=== PATIENT | female | born 1975 | race Caucasian/White ===

== ENCOUNTER 2022-11-05 12:56 | Emergency (ER) | payer OTHER, SELFPAY ==
[2022-11-05] VITALS (7 sets, daily range): BP systolic 120–160; BP diastolic 67–100; PULSE 70–82; RESP 11–18; TEMP 36.5–37.1; O2SAT 93–100; BMI 43.5
--- NOTE | ~2022-11-05 | XR_ITS ---
EXAMINATION: XR CHEST CLINICAL INFORMATION: Chest pain. COMPARISON: None available. TECHNIQUE: 2 views of the chest were obtained. FINDINGS: No significant abnormality is noted involving the heart, lungs, mediastinum, bony thorax or soft tissues. XR/XR chest 2V IMPRESSION: No acute cardiopulmonary process.
--- NOTE | 2022-11-05 14:14 | ECG_ITS ---
Test Reason : sob Blood Pressure : / mmHG Vent. Rate : 081 BPM Atrial Rate : 081 BPM P-R Int : 210 ms QRS Dur : 074 ms QT Int : 386 ms P-R-T Axes : 049 -07 037 degrees QTc Int : 448 ms Sinus rhythm with 1st degree A-V block Possible Left atrial enlargement Borderline ECG No previous ECGs available Referred By: Arti Wilhelm Electronically Signed By:JAIME GROSSMAN
--- NOTE | 2022-11-05 14:35 | ED.GENADULT ---
HPI - General Adult General Chief complaint: General Medical Stated complaint: SOB, high BP (208/100) per EMS Time Seen by Provider: 11/05/22 13:51 Source: patient and EMS Mode of arrival: EMS Limitations: no limitations History of Present Illness HPI narrative: 47-year-old female with a history of asthma presents to the ER with complaints of waking with chest tightness, shortness of breath. Patient denies cough, fever, dizziness, palpitations, leg swelling or leg pain. No recent illnesses. No recent travel. Patient reports multiple stressors at home and increasing anxiety. No SI or HI. Use albuterol at home with continued symptom. Patient reports chest tightness is constant as well as shortness of breath. It is not exertional. It is not pleuritic. Related Data Allergies Allergy/AdvReac Type Severity Reaction Status Date / Time No Known Allergies Allergy Verified 11/05/22 19:10 Review of Systems Review of Systems: Yes all other systems are reviewed and are negative Constitutional: Constitutional: Reports no additional constitutional complaints, Denies body ache(s), Denies chills, Denies fever(s), Denies headache(s) and Denies weakness Eyes: Eyes: Reports no additional eye complaints and Denies change in vision ENT: Reports system reviewed and no additional complaints, except as documented, Denies dizziness, Denies headache(s), Denies nasal congestion, Denies nasal discharge and Denies neck pain Cardiovascular: Cardiovascular: Reports no additional cardiovascular complaints, Reports chest pain, Denies leg edema and Reports dyspnea Respiratory: Respiratory: Reports no additional respiratory complaints, Denies cough and Reports dyspnea Gastrointestinal: Gastrointestinal: Reports no additional gastrointestinal complaints, Denies abdominal pain, Denies diarrhea, Denies nausea and Denies vomiting Genitourinary: Genitourinary: Reports no additional female genitourinary complaints and Denies urinary incontinence Musculoskeletal: Musculoskeletal: Reports no additional musculoskeletal complaints, Denies back pain, Denies arthralgias, Denies joint swelling, Denies neck pain, Denies numbness and Denies tingling Integumentary/Breasts: Skin/Breast: Reports system reviewed and no additional complaints, except as docu and Denies rash Neurologic: Reports system reviewed and no additional complaints, except as documented, Denies dizziness, Denies headache(s), Denies numbness, Denies tingling and Denies weakness PMFSH Past Medical History Attestation statement: The following information was validated with the patient. Source: old records reviewed and nursing notes reviewed Social History Social History Advance Directives: No Advance Directives Information Provided: No Physical Exam ED Vital Signs: Vital Signs - 24 hr 11/05/22 13:24 11/05/22 19:20 11/05/22 19:25 Temperature 97.7 F Pulse Rate 82 74 82 Respiratory Rate 18 18 16 Blood Pressure 142/95 H 149/90 H 120/67 Pulse Oximetry 96 94 95 Oxygen Delivery Method Room Air Room Air Room Air 11/05/22 19:30 11/05/22 19:35 Temperature Pulse Rate 81 82 Respiratory Rate 11 L 15 Blood Pressure 133/81 132/84 Pulse Oximetry 96 93 Oxygen Delivery Method Room Air Room Air BMI result Body Mass Index 43.5 Const General: cooperative, healthy appearing, comfortable and no acute distress Orientation/consciousness: patient oriented x3 Limitations: no limitations HENMT Head: Yes normal to inspection Ears: hearing grossly normal bilaterally Eyes General: appearance normal, both eyes and all related structures Pupils: Equal, round and reactive pupils present Neck Neck: Yes normal visual inspection, Yes full ROM, Yes no lymphadenopathy and Yes no meningeal signs Chest Chest palpation & inspection: normal inspection of the chest Resp Effort & Inspection: normal respiratory effort Auscultation: clear to auscultation bilaterally Cardio Rate: regular rate Rhythm: regular rhythm Peripheral pulses: Peripheral pulses 2+ throughout GI Inspection: Yes normal to inspection Palpation (GI): Soft to palpation and nontender General: Yes no CVA tenderness Back/Spine/Pelvis Back: no CVA tenderness Thoracic/Lumbar Spine: thoracic and lumbar spine normal to inspection Skin General skin exam: no rashes or lesions noted Neuro General: patient oriented x3, moves all extremities and no meningeal signs Cranial nerves: Yes CN's II-XII intact bilaterally, Yes Equal, round and reactive pupils present, Yes Bilaterally intact EOM present, Yes Nystagmus not present and Yes Normal facial strength present Cognition (Neuro): normal cognition Gait exam (Neuro): Normal gait present Motor exam (neuro): 5/5 motor strength present throughout Sensory Exam: Normal double simultaneous stimulation for sensation Extrem General: Yes normal to inspection, Yes no pedal edema and Yes no calf tenderness Course Course Course Narrative: 1520-patient's troponin is 54. Her EKG looks nonischemic. Her history of present illness is atypical for ACS. I will plan to repeat a troponin in 3 hours. Reevaluation(s) Reevaluation #1: 1630-sign out to Miriam BAUER pending repeat troponin and re-evaluation Reevaluation #2: repeat troponin went from 54-88. Patient still having active chest pain. Therefore I discussed this case with Dr. Alonzo our bench worker helper he reported that the patient should be given IV heparin at this time and she should be transferred to [facility] for cardiac catheterization. Therefore I discussed this case with 1 of the cardiologists at [facility] they recommended giving the patient nitro to control her pain 3 times if her pain was not controlled and she would have to be started on a nitro drip. Therefore her pain is now at a 4 out of a 10 after 3 sublingual nitros. Therefore a nitro drip was started. She will be transported via EMS to a direct admit at [facility] to be evaluated by Cardiology Dr. [facility] provider at [facility]. Patient understands she will be transported. Will continue to monitor until then. Time: 20:07 Medications Administered Generic Name Dose Route Start Last Admin Trade Name Freq PRN Reason Stop Dose Admin Heparin Sodium/Sodium Chloride 25,000 unit in 250 mls @ 0 mls/hr 11/05/22 19:00 11/05/22 19:55 Heparin Sodium,Porcine/1/2ns IVCONT 10 units/kg/hr .Q0M LINDA 11.5 mls/hr Administration Protocol Per Protocol Discontinued Medications Generic Name Dose Route Start Last Admin Trade Name Freq PRN Reason Stop Dose Admin Heparin Sodium (Porcine) 4,000 unit 11/05/22 18:53 11/05/22 19:11 Heparin Sodium,Porcine 5,000 Unit/Ml Vial IVPUSH 11/05/22 18:54 4,000 unit ONCE ONE Administration Ketorolac Tromethamine 30 mg 11/05/22 14:14 11/05/22 14:36 Ketorolac Tromethamine 30 Mg/Ml Vial IVPUSH 11/05/22 14:15 30 mg ONCE ONE Administration Lorazepam 0.5 mg 11/05/22 14:14 11/05/22 14:36 Lorazepam 2 Mg/Ml Vial IVPUSH 11/05/22 14:15 0.5 mg STAT STA Administration Nitroglycerin 0.4 mg 11/05/22 19:07 11/05/22 19:20 Nitroglycerin 0.4 Mg Tab.Subl SUBLINGUAL 11/05/22 19:08 0.4 mg ONCE ONE Administration Nitroglycerin 0.4 mg 11/05/22 19:34 11/05/22 19:25 Nitroglycerin 0.4 Mg Tab.Subl SUBLINGUAL 11/05/22 19:35 0.4 mg ONCE ONE Administration Nitroglycerin 0.4 mg 11/05/22 19:55 11/05/22 19:30 Nitroglycerin 0.4 Mg Tab.Subl SUBLINGUAL 11/05/22 19:56 0.4 mg ONCE ONE Administration Nitroglycerin 0.4 mg 11/05/22 19:25 11/05/22 20:05 Nitroglycerin 0.4 Mg Tab.Subl SUBLINGUAL 11/05/22 19:26 Not Given ONCE ONE Medical Decision Making Medical Decision Making MDM Narrative: 47 yo female here with chest tightness/shortness of breath with waking today. NO fevers, chills, URI symptoms, leg swelling/leg pain. LS CTA. VSS. Legs normal. Will check labs, EKG, CXR, covid screen. +multiple life stressors Will give ativan, toradol and re-assess Differential Diagnosis Differential Diagnoses: The differential diagnosis associated with the presentation includes acs-HPI atypical for ACS, EKG non-ischemia, plan for 2 troponins prior to dispo pe PERC 0, d dimer negative, aortic dissection-less likely with gradual onset, anxiety Admission/Observation Consideration of admission/observation: Escalation of care including admission/observation considered Consult Healthcare Provider Management of the patient was discussed with: [employer] Operator ( [facility] Cardiology and Dr. Alonzo our bench worker helper) Lab Data MDM Lab Attestation statement: I reviewed the patient's lab results. I reviewed the labs show a mildly elevated WBC count and platelet count. Troponin is 54 Labs otherwise remarked 11/05/22 14:33 11/05/22 14:33 Labs: Lab Results 11/05/22 11/05/22 11/05/22 Range/Units 14:33 14:33 14:33 WBC 11.9 H (4.8-10.8) X10*3/uL RBC 4.46 (4.20-5.50) X10*6/uL Hgb 11.8 L (12.0-16.0) g/dl Hct 37.2 (37.0-47.0) % MCV 83.4 (80.0-98.0) fL MCH 26.5 L (27.0-33.0) pg MCHC 31.7 (31.0-35.0) g/dl RDW 18.2 H (11.0-16.0) % Plt Count 508 H (160-400) X10*3/uL MPV 7.7 L (9.4-12.3) fL Immature Gran % (Auto) 0.3 (0.0-0.4) % Neut % (Auto) 71.0 (45-73) % Lymph % (Auto) 22.6 (20-40) % [place] % (Auto) 4.6 (2-11) % Eos % (Auto) 0.9 (0-4) % Baso % (Auto) 0.6 (0-2) % Lymph # (Auto) 2.7 (1.2-4.9) X10*3/uL [place] # (Auto) 0.6 (0.1-1.2) X10*3/uL Eos # (Auto) 0.1 (0.0-0.4) X10*3/uL Baso # (Auto) 0.1 (0.0-0.2) X10*3/uL Abs Immat Gran (auto) 0.04 H (0.00-0.03) X10*3/uL Absolute Neuts (auto) 8.4 H (2.0-8.3) x10*3/uL Absolute Nucleated RBC 0.000 (0.0-0.012) X10*3/uL Nucleated RBC % (auto) 0.0 (0.0-0.2) /100WBC PT 11.0 L (11.1-13.3) SEC INR 0.9 (0.9-1.1) aPTT Heparin Protocol (53-77.9) SEC D-Dimer High Sensitivty < 150 NG/ML Sodium 137 (135-145) mmol/L Potassium 4.4 (3.3-5.1) mmol/L Chloride 103 (96-108) mmol/L Carbon Dioxide 21 L (22-29) mmol/L Anion Gap 17 (12-20) BUN 8 L (9-16) mg/dL Creatinine 0.91 (0.5-1.4) mg/dL Estim Creat Clear Calc 93.0 Estimated GFR > 60 Random Glucose 109 (60-115) mg/dL Calcium 9.5 (8.4-10.2) mg/dL Magnesium 2.2 (1.6-2.6) mg/dL Total Bilirubin 0.1 (0.0-1.0) mg/dL Direct Bilirubin < 0.2 (0.0-0.5) mg/dL AST 13 (5-31) U/L ALT 9 (0-31) U/L Alkaline Phosphatase 101 (39-117) U/L Troponin I High Sens (<3.5-17.0) ng/L B-Natriuretic Peptide (<100) pg/mL Total Protein 7.8 (6.5-8.0) g/dL Albumin 4.1 (3.5-5.0) g/dL COVID-19 (SCOTT) (Negative) COVID-19 Clin Com 11/05/22 11/05/22 11/05/22 Range/Units 14:33 14:33 14:33 WBC (4.8-10.8) X10*3/uL RBC (4.20-5.50) X10*6/uL Hgb (12.0-16.0) g/dl Hct (37.0-47.0) % MCV (80.0-98.0) fL MCH (27.0-33.0) pg MCHC (31.0-35.0) g/dl RDW (11.0-16.0) % Plt Count (160-400) X10*3/uL MPV (9.4-12.3) fL Immature Gran % (Auto) (0.0-0.4) % Neut % (Auto) (45-73) % Lymph % (Auto) (20-40) % [place] % (Auto) (2-11) % Eos % (Auto) (0-4) % Baso % (Auto) (0-2) % Lymph # (Auto) (1.2-4.9) X10*3/uL [place] # (Auto) (0.1-1.2) X10*3/uL Eos # (Auto) (0.0-0.4) X10*3/uL Baso # (Auto) (0.0-0.2) X10*3/uL Abs Immat Gran (auto) (0.00-0.03) X10*3/uL Absolute Neuts (auto) (2.0-8.3) x10*3/uL Absolute Nucleated RBC (0.0-0.012) X10*3/uL Nucleated RBC % (auto) (0.0-0.2) /100WBC PT (11.1-13.3) SEC INR (0.9-1.1) aPTT Heparin Protocol (53-77.9) SEC D-Dimer High Sensitivty NG/ML Sodium (135-145) mmol/L Potassium (3.3-5.1) mmol/L Chloride (96-108) mmol/L Carbon Dioxide (22-29) mmol/L Anion Gap (12-20) BUN (9-16) mg/dL Creatinine (0.5-1.4) mg/dL Estim Creat Clear Calc Estimated GFR Random Glucose (60-115) mg/dL Calcium (8.4-10.2) mg/dL Magnesium (1.6-2.6) mg/dL Total Bilirubin (0.0-1.0) mg/dL Direct Bilirubin (0.0-0.5) mg/dL AST (5-31) U/L ALT (0-31) U/L Alkaline Phosphatase (39-117) U/L Troponin I High Sens 54.8 H* (<3.5-17.0) ng/L B-Natriuretic Peptide 15 (<100) pg/mL Total Protein (6.5-8.0) g/dL Albumin (3.5-5.0) g/dL COVID-19 (SCOTT) Negative (Negative) COVID-19 Clin Com See Note 11/05/22 11/05/22 11/05/22 Range/Units 17:41 19:18 19:18 WBC 11.5 H (4.8-10.8) X10*3/uL RBC 4.10 L (4.20-5.50) X10*6/uL Hgb 10.9 L (12.0-16.0) g/dl Hct 34.2 L (37.0-47.0) % MCV 83.4 (80.0-98.0) fL MCH 26.6 L (27.0-33.0) pg MCHC 31.9 (31.0-35.0) g/dl RDW 18.2 H (11.0-16.0) % Plt Count 450 H (160-400) X10*3/uL MPV 7.8 L (9.4-12.3) fL Immature Gran % (Auto) (0.0-0.4) % Neut % (Auto) (45-73) % Lymph % (Auto) (20-40) % [place] % (Auto) (2-11) % Eos % (Auto) (0-4) % Baso % (Auto) (0-2) % Lymph # (Auto) (1.2-4.9) X10*3/uL [place] # (Auto) (0.1-1.2) X10*3/uL Eos # (Auto) (0.0-0.4) X10*3/uL Baso # (Auto) (0.0-0.2) X10*3/uL Abs Immat Gran (auto) (0.00-0.03) X10*3/uL Absolute Neuts (auto) (2.0-8.3) x10*3/uL Absolute Nucleated RBC 0.000 (0.0-0.012) X10*3/uL Nucleated RBC % (auto) 0.0 (0.0-0.2) /100WBC PT 11.8 (11.1-13.3) SEC INR 1.0 (0.9-1.1) aPTT Heparin Protocol 28.4 L (53-77.9) SEC D-Dimer High Sensitivty NG/ML Sodium (135-145) mmol/L Potassium (3.3-5.1) mmol/L Chloride (96-108) mmol/L Carbon Dioxide (22-29) mmol/L Anion Gap (12-20) BUN (9-16) mg/dL Creatinine (0.5-1.4) mg/dL Estim Creat Clear Calc Estimated GFR Random Glucose (60-115) mg/dL Calcium (8.4-10.2) mg/dL Magnesium (1.6-2.6) mg/dL Total Bilirubin (0.0-1.0) mg/dL Direct Bilirubin (0.0-0.5) mg/dL AST (5-31) U/L ALT (0-31) U/L Alkaline Phosphatase (39-117) U/L Troponin I High Sens 88.4 H* D (<3.5-17.0) ng/L B-Natriuretic Peptide (<100) pg/mL Total Protein (6.5-8.0) g/dL Albumin (3.5-5.0) g/dL COVID-19 (SCOTT) (Negative) COVID-19 Clin Com Independent Interpretation I performed an independent interpretation of an: EKG and Plain X-Ray Interpretation: I independently reviewed the chest x-ray and agree with the radiology report Independent reviewed the EKG which is sinus rhythm with first-degree AV block, normal QRS, normal QT Radiology Impression Discussion of test interpretation with radiology: I have reviewed the radiologist's reading. Radiologist Impression: [address] [address] XRay Report Signed Patient: Loida Sepulveda MR#: [id number] : 1975 Acct:[id number] Age/Sex: 47 / F ADM Date: 11/05/22 Loc: .ED Attending Dr: Ordering Physician: Arti Covarrubias NP Date of Service: 11/05/22 Procedure(s): XR chest 2V Accession Number(s): [id number] cc: Arti Covarrubias NP~ EXAMINATION: XR CHEST CLINICAL INFORMATION: Chest pain. COMPARISON: None available. TECHNIQUE: 2 views of the chest were obtained. FINDINGS: No significant abnormality is noted involving the heart, lungs, mediastinum, bony thorax or soft tissues. XR/XR chest 2V IMPRESSION: No acute cardiopulmonary process. Independent Historian Clinical information obtained from an independent historian. History obtained from or confirmed by: Spouse and EMS External Record Review External record reviewed: Inpatient record, Office record, Outpatient record, Prior outpatient labs, Prior outpatient radiology, Primary care record and Outside ED record all prior labs/imaging / EKG and notes that are accessible in our system reviewed by myself Chronic Conditions Patient?s care impacted by: Other ( asthma and obesity) Social Determinants Patient?s care significantly limited by Social Determinants of Health including: Low income and Other Social Determinant of Health Critical Care Time Critical Care Time Critical Care Time: Yes Total Critical Care Time: 60 Attestation: I personally attest to this time spent taking care of the patient Discharge Plan Discharge Clinical Impression: Chest pain, Elevated troponin, Acute non-ST elevation myocardial infarction (NSTEMI) Patient Disposition: [facility] Transfer Details: [facility] Dr. Kapadia Instructions: Chest Pain (ED) Additional Instructions: Your blood works, EKG and chest x-ray are reassuring. Your blood pressure was mildly elevated. Please follow-up with your PCP next week as you may need additional outpatient evaluation and testing done Return for worsening symptoms Referrals: Hema Vogel MD [Primary Care Provider] - 1 week
[2022-11-05] MEDS: LORazepam 2 MG/ML VIAL 0.5 MG IVPUSH (14:36)
[2022-11-05] MEDS: Ketorolac Tromethamine 30 MG/ML VIAL IVPUSH (14:36)
[2022-11-05 14:38] LABS: MANUAL DIFF FLAG NO
[2022-11-05 14:40] LABS: Basophils Absolute Auto 0.1 X10*3/uL (0.0-0.2); Basophils Percent Auto 0.6 % (0-2); Eosinophils Absolute Auto 0.1 X10*3/uL (0.0-0.4); Eosinophils Percent Auto 0.9 % (0-4); Hematocrit 37.2 % (37.0-47.0); Hemoglobin 11.8 g/dl (12.0-16.0); Imm Gran Abs Auto 0.04 X10*3/uL (0.00-0.03); Imm Gran Pct Auto 0.3 % (0.0-0.4); Lymphocytes Absolute Auto 2.7 X10*3/uL (1.2-4.9); Lymphocytes Percent Auto 22.6 % (20-40); Mean Corpuscular HGB Conc 31.7 g/dl (31.0-35.0); Mean Corpuscular Hemoglobin 26.5 pg (27.0-33.0); Mean Corpuscular Volume 83.4 fL (80.0-98.0); Mean Platelet Volume 7.7 fL (9.4-12.3); Monocytes Absolute Auto 0.6 X10*3/uL (0.1-1.2); Monocytes Percent Auto 4.6 % (2-11); Neutrophils Absolute Auto 8.4 x10*3/uL (2.0-8.3); Platelet Count 508 X10*3/uL (160-400); Red Blood Count 4.46 X10*6/uL (4.20-5.50); Red Cell Distribution Width 18.2 % (11.0-16.0); White Blood Count 11.9 X10*3/uL (4.8-10.8)
[2022-11-05 14:46] LABS: INTERNATIONAL NORM RATIO 0.9 (0.9-1.1)
[2022-11-05 14:53] LABS: D Dimer High Sensitivity < 150 NG/ML
[2022-11-05 14:55] LABS: Alanine Aminotransferase 9 U/L (0-31); Albumin Level 4.1 g/dL (3.5-5.0); Alkaline Phosphatase 101 U/L (39-117); Anion Gap 17 (12-20); Aspartate Amino Transferase 13 U/L (5-31); Bilirubin Direct < 0.2 mg/dL (0.0-0.5); Bilirubin Total 0.1 mg/dL (0.0-1.0); Blood Urea Nitrogen 8 mg/dL (9-16); Calcium 9.5 mg/dL (8.4-10.2); Carbon Dioxide 21 mmol/L (22-29); Chloride 103 mmol/L (96-108); Estimated Glomerular Filt Rate > 60; Glucose Random 109 mg/dL (60-115); Magnesium 2.2 mg/dL (1.6-2.6); Potassium 4.4 mmol/L (3.3-5.1); Sodium 137 mmol/L (135-145); Total Protein 7.8 g/dL (6.5-8.0)
[2022-11-05 14:59] LABS: B Type Natriuretic Peptide 15 pg/mL (<100)
[2022-11-05 15:14] LABS: Troponin-I High Sensitivity 54.8 ng/L (<3.5-17.0)
[2022-11-05 15:29] LABS: COVID-19 Test Negative (Negative)
[2022-11-05 18:27] LABS: Troponin-I High Sensitivity 88.4 ng/L (<3.5-17.0)
[2022-11-05] MEDS: Heparin Sodium,Porcine 5,000 UNIT/ML VIAL 4000 UNIT IVPUSH (19:11)
[2022-11-05] MEDS: Nitroglycerin 0.4 MG TAB.SUBL SUBLINGUAL ×3 (19:20→19:30)
[2022-11-05 19:23] LABS: Hematocrit 34.2 % (37.0-47.0); Hemoglobin 10.9 g/dl (12.0-16.0); Mean Corpuscular HGB Conc 31.9 g/dl (31.0-35.0); Mean Corpuscular Hemoglobin 26.6 pg (27.0-33.0); Mean Corpuscular Volume 83.4 fL (80.0-98.0); Mean Platelet Volume 7.8 fL (9.4-12.3); Platelet Count 450 X10*3/uL (160-400); Red Cell Distribution Width 18.2 % (11.0-16.0); White Blood Count 11.5 X10*3/uL (4.8-10.8)
[2022-11-05 19:30] LABS: Prothrombin Time 11.8 SEC (11.1-13.3)
[2022-11-05 19:33] LABS: PTT Heparin Drip 28.4 SEC (53-77.9)
[2022-11-05] MEDS: Heparin Sodium,Porcine/1/2NS 25,000 UNIT/250 ML IV.SOLN 11.5 UNIT IVCONT (19:55)
[2022-11-05] MEDS: Morphine Sulfate 4 MG/ML CARTRIDGE IVPUSH (21:25)
[2022-11-05] MEDS: ondansetron HCL 4 MG/2 ML VIAL IVPUSH (21:25)
--- NOTE | 2022-11-05 22:00 | PC.NURSE ---
Late entry note: this advertising writer assumed care at 1900 Pt A&Ox4,Pt reporting 9/10 midsternal CP that radiates to left shoulder with palpitation, 3 nitros given with pain decreased with a positive effect and BP improvement. Pt started on a heparin drip as ordered, second IV placed blood work collected and sent to lab. Pt reports chronic upper back pain, reports 8/10 pain, very uncomfortable, tearful wanting to leave. Pt reassured provider notified.ew order of pain meds given as documented, lights dimmed. Report given to Ab GRANDA at [facility], pt will be transported, VIA ambulance. PT and aware of plan.
== END 2022-11-05 22:13 | disposition short-term general hospital (02) ==
PROVIDERS: Nurse Practitioner Family; Physician Assistant Medical; Emergency Provider Emergency Medicine; PCP Internal Medicine
DX: I21.4 Non-ST elevation (NSTEMI) myocardial infarction (principal); R07.9 Chest pain, unspecified; R77.8 Other specified abnormalities of plasma proteins; Z20.822 Contact with and (suspected) exposure to COVID-19; R06.02 Shortness of breath; E66.9 Obesity, unspecified; Z68.41 Body mass index [BMI] 40.0-44.9, adult
CPT/HCPCS: 36415; 71046; 80048; 80076; 83735; 83880; 84484; 85025; 85027; 85379; 85610; 85730; 87635; 93005; 96365; 96375; 99285; J1643; J1885; J2060; J2270; J2405

== ENCOUNTER → 2022-11-05 14:14 | Outpatient (BNV) | payer OTHER, SELFPAY | PROVIDERS: Emergency Provider Emergency Medicine; PCP Internal Medicine; Visit Provider Internal Medicine | DX: I44.0 Atrioventricular block, first degree (principal) | CPT/HCPCS: 93010 ==